=== PATIENT | female | born 1935 | race Two or more races ===

== ENCOUNTER 2020-06-03 05:45 | Inpatient (IN) | payer MEDICARE, MEDICAID ==
[~2020-06-03] VITALS: Ht 157.5 cm; Wt 62.2 kg
[2020-06-03] MEDS ORDERED: MORPHINE SULFATE 4 MG/ML CPJ (NOT FOR IM USE) IV STA (06:12)
[2020-06-03] MEDS ORDERED: ONDANSETRON HCL 4MG/2ML INJ ONE (06:31)
[2020-06-03] MEDS ORDERED: ONDANSETRON HCL 4MG/2ML INJ IV ONE (06:45)
[2020-06-03 06:49] LABS: BASOPHILS % 0.9 % (0.0-2.0); EOSINOPHILS % 3.2 % (0.0-5.0); HEMATOCRIT. 27.8 % (36.0-48.0); LYMPHOCYTES % 14.6 % (20.0-50.0); MEAN CORPUSCULAR VOLUME 95.2 fL (81.0-99.0); MEAN PLATELET VOLUME 8.8 fl (7.4-10.4); NEUTROPHILS % 72.3 % (40.0-76.0); PLATELET 360 x1000/uL (130-400); RED BLOOD CELL COUNT 2.92 mill/uL (4.2-5.4); RED CELL DISTRIBUTION WIDTH 13.3 % (11.6-14.6)
[2020-06-03 06:50] LABS: CHLORIDE 111 mEq/L (98-107)
[2020-06-03] MEDS ORDERED: MORPHINE SULFATE 4 MG/ML CPJ (NOT FOR IM USE) IV ONE (08:45)
[2020-06-03] MEDS ORDERED: CLONIDINE 0.1MG TABLET PO PRN (09:45)
[2020-06-03] MEDS ORDERED: ONDANSETRON HCL 4MG/2ML INJ IV PRN (09:45)
[2020-06-03] MEDS ORDERED: IPRATROPIUM/ALBUTEROL 0.5-3(2.5)MG/3ML NEB HHN PRN (09:45)
[2020-06-03] MEDS ORDERED: DIPHENHYDRAMINE 50MG/ML VIAL IV PRN (09:45)
[2020-06-03] MEDS ORDERED: FUROSEMIDE 100MG/10ML VIAL IV SCH (10:00)
[2020-06-03] MEDS: ACETAMINOPHEN 325MG TABLET PO PRN ×2 (10:23→18:01)
[2020-06-03 11:20] VITALS: BP 148/53
[2020-06-03 13:01] LABS: BG BASE EXCESS -7.7 mmol/L (-2.0-2.0); BG CARBOXYHEMOGLOBIN 0.3 % (0.5-1.5); BG DEOXYHEMOGLOBIN 8.4 % (0.0-5.0); BG FRACTION INSPIRED OXYGEN 36; BG HCO3 ACT 17.9 mmol/L (22.0-26.0); BG METHEMOGLOBIN 0.3 % (0.0-1.5); BG OXYGEN SATURATION 91.5 % (92.0-98.5); BG PCO2 36.6 mmHg (35.0-45.0); BG PH 7.308 (7.350-7.450); BG PO2 69.6 mmHg (75.0-100.0); BG SAMPLE SITE LEFT RADIAL; BG TOTAL HEMOGLOBIN 9.5 g/dL (12.0-18.0); BG VENT MODE NASAL CANNULA
[2020-06-03] MEDS: ISOSORBIDE DINITRATE 10MG TABLET PO SCH ×2 (14:41→17:36)
[2020-06-03] MEDS: HYDRALAZINE HCL 10MG TABLET PO SCH ×2 (14:55→20:39)
[2020-06-03] MEDS ORDERED: SITA100T11 PO (15:57)
[2020-06-03] MEDS ORDERED: GLIP5TAB12 MT (15:57)
[2020-06-03] MEDS ORDERED: METF-416 PO (15:57)
[2020-06-03] MEDS ORDERED: CLON0.1T PO (15:57)
[2020-06-03] MEDS ORDERED: DEXL30CA3 PO (15:57)
[2020-06-03] MEDS ORDERED: LOSA100T32 PO (15:57)
[2020-06-03] MEDS ORDERED: AMLO10TA80 PO (15:57)
[2020-06-03] MEDS ORDERED: DICL100G31 TP (15:57)
[2020-06-03] MEDS ORDERED: LEVO250T58 MT (15:57)
[2020-06-03] MEDS ORDERED: OMEP20TA2 PO (15:57)
[2020-06-03 16:02] VITALS: BP 142/47
[2020-06-03 17:02] LABS: CLARITY URINE CLEAR (CLEAR); COLOR URINE YELLOW (YELLOW); KETONES URINE NEGATIVE (NEGATIVE); LEUKOCYTE ESTERASE URINE TRACE (NEGATIVE); NITRITE URINE NEGATIVE (NEGATIVE); OCCULT BLOOD URINE NEGATIVE (NEGATIVE); PROTEIN URINE 1+ (NEGATIVE); SPECIFIC GRAVITY URINE 1.009 (1.005-1.030); UROBILINOGEN URINE 0.2 E.U./dL (0.2-1.0)
[2020-06-03] MEDS ORDERED: ASPIRIN 325MG EC TABLET PO ONE (17:15)
[2020-06-03] MEDS: FUROSEMIDE 100MG/10ML VIAL IV SCH (17:35)
[2020-06-03] MEDS ORDERED: HEPARIN 25,000 UNITS PREMIX 250 ML IV PRN (17:45)
[2020-06-03] MEDS ORDERED: HEPARIN 5000 UNITS/ML VIAL IV NR (17:45)
[2020-06-03] MEDS ORDERED: HEPARIN 5000 UNITS/ML VIAL IV PRN ×2 (17:45)
[2020-06-03 18:01] LABS: BG BASE EXCESS -8.8 mmol/L (-2.0-2.0); BG CARBOXYHEMOGLOBIN 0.3 % (0.5-1.5); BG FRACTION INSPIRED OXYGEN 100; BG HCO3 ACT 16.3 mmol/L (22.0-26.0); BG OXYHEMOGLOBIN 92.7 % (94.0-97.0); BG PCO2 32.2 mmHg (35.0-45.0); BG PH 7.322 (7.350-7.450); BG PO2 75.5 mmHg (75.0-100.0); BG SAMPLE SITE RIGHT RADIAL; BG TOTAL HEMOGLOBIN 9.4 g/dL (12.0-18.0); BG VENT MODE MASK - NRB
[2020-06-03 20:00] VITALS: BP 147/59
[2020-06-03] MEDS ORDERED: DEXTROSE 50% WATER 50ML SYRINGE IV PRN (20:00)
[2020-06-03] MEDS: ATORVASTATIN CALCIUM 40MG TABLET PO SCH (20:38)
[2020-06-03] MEDS: INSULIN LISPRO 100 UNITS/ML SUBCUT SCH (20:38)
[2020-06-03] MEDS: BLOOD SUGAR DIAGNOSTIC STRIP TEST SCH (20:38)
[2020-06-03 23:45] VITALS: BP 131/47
[2020-06-04] MEDS: MORPHINE SULFATE 2 MG/ML CPJ (NOT FOR IM USE) IV PRN (00:20)
[2020-06-04 04:00] VITALS: BP 146/47
[2020-06-04 04:30] VITALS: BP 146/47
[2020-06-04] MEDS: FUROSEMIDE 100MG/10ML VIAL IV SCH ×2 (05:30→17:36)
[2020-06-04] MEDS: HYDRALAZINE HCL 10MG TABLET PO SCH ×3 (05:30→21:30)
[2020-06-04] MEDS: BLOOD SUGAR DIAGNOSTIC STRIP TEST SCH ×4 (06:23→21:28)
[2020-06-04 06:24] LABS: CHLORIDE 111 mEq/L (98-107)
[2020-06-04 06:28] LABS: BASOPHILS % 0.8 % (0.0-2.0); EOSINOPHILS % 1.3 % (0.0-5.0); HEMOGLOBIN. 7.6 g/dL (12.0-16.0); LYMPHOCYTES % 14.4 % (20.0-50.0); MEAN CORPUSCULAR HEMOGLOBIN 31.1 pg (28.0-32.0); MEAN CORPUSCULAR VOLUME 94.5 fL (81.0-99.0); MEAN PLATELET VOLUME 8.7 fl (7.4-10.4); MONOCYTES % 12.4 % (2.0-8.0); NEUTROPHILS % 71.1 % (40.0-76.0); PLATELET 280 x1000/uL (130-400); RED BLOOD CELL COUNT 2.43 mill/uL (4.2-5.4); RED CELL DISTRIBUTION WIDTH 13.5 % (11.6-14.6)
[2020-06-04 06:35] LABS: PHOSPHORUS 5.2 mg/dL (2.5-4.9)
[2020-06-04 06:36] LABS: LDL CHOLESTEROL 63 mg/dL (5-100)
[2020-06-04 06:37] LABS: CREATINE KINASE 371 IU/L (26-192); HDL CHOLESTEROL 63 mg/dL (40-59)
[2020-06-04] MEDS: INSULIN LISPRO 100 UNITS/ML SUBCUT SCH ×4 (07:50→21:30)
[2020-06-04 08:00] VITALS: BP 146/57
[2020-06-04] MEDS: ISOSORBIDE DINITRATE 10MG TABLET PO SCH ×3 (08:23→17:37)
[2020-06-04] MEDS: ASPIRIN 81MG TABLET PO SCH (08:23)
[2020-06-04 09:24] LABS: BG BASE EXCESS -5.3 mmol/L (-2.0-2.0); BG CARBOXYHEMOGLOBIN 0.3 % (0.5-1.5); BG DEOXYHEMOGLOBIN 9.2 % (0.0-5.0); BG FRACTION INSPIRED OXYGEN 50; BG HCO3 ACT 19.5 mmol/L (22.0-26.0); BG METHEMOGLOBIN 0.1 % (0.0-1.5); BG OXYGEN SATURATION 90.8 % (92.0-98.5); BG OXYHEMOGLOBIN 90.4 % (94.0-97.0); BG PCO2 34.6 mmHg (35.0-45.0); BG PH 7.368 (7.350-7.450); BG PO2 65.9 mmHg (75.0-100.0); BG SAMPLE SITE RIGHT RADIAL; BG TOTAL HEMOGLOBIN 8.3 g/dL (12.0-18.0); BG TOTAL RESPIRATORY RATE 18 b/min; BG VENT MODE MASK - BIPAP
[2020-06-04 12:00] VITALS: BP_SYST 133; BP_DIAS 47; BP_DIAS 50
[2020-06-04 13:08] LABS: EOSINOPHILS % 1.4 % (0.0-5.0); HEMATOCRIT. 26.2 % (36.0-48.0); HEMOGLOBIN. 8.9 g/dL (12.0-16.0); LYMPHOCYTES % 10.2 % (20.0-50.0); MEAN CORPUSCULAR HEMOGLOBIN 31.9 pg (28.0-32.0); MEAN CORPUSCULAR VOLUME 94.1 fL (81.0-99.0); MEAN PLATELET VOLUME 8.8 fl (7.4-10.4); MONOCYTES % 9.8 % (2.0-8.0); NEUTROPHILS % 77.6 % (40.0-76.0); PLATELET 331 x1000/uL (130-400); RED BLOOD CELL COUNT 2.79 mill/uL (4.2-5.4); RED CELL DISTRIBUTION WIDTH 13.2 % (11.6-14.6)
[2020-06-04 13:25] LABS: PARTIAL THROMBOPLASTIN TIME 28.3 sec (23.4-31.0); PROTHROMBIN TIME 10.9 sec (9.6-11.0)
[2020-06-04] MEDS ORDERED: SODIUM POLYSTYRENE SULFONATE 15 G/60 ML BOT PO NR (14:00)
[2020-06-04 16:00] VITALS: BP 161/54
[2020-06-04 16:08] LABS: TOTAL IRON BINDING CAPACITY 255 ug/dL (250-450)
[2020-06-04] MEDS: METOLAZONE 2.5MG TABLET PO SCH (17:37)
[2020-06-04 20:13] VITALS: BP 113/57
[2020-06-04] MEDS: ATORVASTATIN CALCIUM 40MG TABLET PO SCH (21:30)
[2020-06-05 00:04] VITALS: BP 127/54
[2020-06-05 04:00] VITALS: BP 125/50
[2020-06-05] MEDS: METOLAZONE 2.5MG TABLET PO SCH ×2 (06:06→18:18)
[2020-06-05] MEDS: HYDRALAZINE HCL 10MG TABLET PO SCH ×3 (06:06→21:23)
[2020-06-05] MEDS: FUROSEMIDE 100MG/10ML VIAL IV SCH ×2 (06:07→18:18)
[2020-06-05] MEDS: MORPHINE SULFATE 2 MG/ML CPJ (NOT FOR IM USE) IV PRN (06:21)
[2020-06-05] MEDS: BLOOD SUGAR DIAGNOSTIC STRIP TEST SCH ×4 (06:21→21:23)
[2020-06-05 06:46] LABS: BASOPHILS % 0.9 % (0.0-2.0); EOSINOPHILS % 1.4 % (0.0-5.0); HEMATOCRIT. 25.5 % (36.0-48.0); HEMOGLOBIN. 8.6 g/dL (12.0-16.0); LYMPHOCYTES % 13.1 % (20.0-50.0); MEAN CORPUSCULAR HEMOGLOBIN 31.5 pg (28.0-32.0); MEAN CORPUSCULAR VOLUME 93.8 fL (81.0-99.0); MEAN PLATELET VOLUME 8.7 fl (7.4-10.4); MONOCYTES % 12.6 % (2.0-8.0); PLATELET 311 x1000/uL (130-400); RED BLOOD CELL COUNT 2.72 mill/uL (4.2-5.4); RED CELL DISTRIBUTION WIDTH 13.1 % (11.6-14.6)
[2020-06-05 06:50] LABS: PHOSPHORUS 5.3 mg/dL (2.5-4.9)
[2020-06-05] MEDS: INSULIN LISPRO 100 UNITS/ML SUBCUT SCH ×4 (07:46→21:23)
[2020-06-05 08:00] VITALS: BP 118/52
[2020-06-05] MEDS ORDERED: LIDOCAINE HCL/PF 1% 2ML VIAL ONE (09:00)
[2020-06-05] MEDS ORDERED: CEFTRIAXONE 1 G PREMIX 50 ML IV SCH (09:30)
[2020-06-05] MEDS: ENOXAPARIN 30MG/0.3ML SYR SUBCUT SCH (09:47)
[2020-06-05] MEDS: ISOSORBIDE DINITRATE 10MG TABLET PO SCH ×3 (09:47→18:18)
[2020-06-05] MEDS: ASPIRIN 81MG TABLET PO SCH (09:47)
[2020-06-05 10:38] LABS: BG BASE EXCESS -3.6 mmol/L (-2.0-2.0); BG CARBOXYHEMOGLOBIN 0.3 % (0.5-1.5); BG DEOXYHEMOGLOBIN 3.1 % (0.0-5.0); BG FRACTION INSPIRED OXYGEN 50; BG HCO3 ACT 20.7 mmol/L (22.0-26.0); BG METHEMOGLOBIN 0.1 % (0.0-1.5); BG OXYGEN SATURATION 96.9 % (92.0-98.5); BG OXYHEMOGLOBIN 96.5 % (94.0-97.0); BG PCO2 34.3 mmHg (35.0-45.0); BG PH 7.398 (7.350-7.450); BG PO2 103.6 mmHg (75.0-100.0); BG SAMPLE SITE RIGHT RADIAL; BG VENT MODE MASK - BIPAP
[2020-06-05] MEDS: CEFTRIAXONE 1,000 MG in DEXTROSE 5% WATER 50 ML IV SCH (11:54)
[2020-06-05 12:05] VITALS: BP 127/52
[2020-06-05] MEDS: AZITHROMYCIN 500 MG in DEXT 5% WATER 250 ML IV SCH (13:02)
[2020-06-05 16:04] VITALS: BP 116/53
[2020-06-05 20:00] VITALS: BP 116/74
[2020-06-05] MEDS: ATORVASTATIN CALCIUM 40MG TABLET PO SCH (21:23)
[2020-06-06] VITALS (7 sets, daily range): BP systolic 107–148; BP diastolic 51–71
[2020-06-06] MEDS: METOLAZONE 2.5MG TABLET PO SCH ×2 (05:33→16:24)
[2020-06-06] MEDS: MORPHINE SULFATE 2 MG/ML CPJ (NOT FOR IM USE) IV PRN (05:33)
[2020-06-06] MEDS: HYDRALAZINE HCL 10MG TABLET PO SCH ×3 (05:33→20:37)
[2020-06-06] MEDS: FUROSEMIDE 100MG/10ML VIAL IV SCH ×2 (05:33→18:56)
[2020-06-06 06:00] LABS: EOSINOPHILS % 5.4 % (0.0-5.0); HEMATOCRIT. 24.3 % (36.0-48.0); HEMOGLOBIN. 8.3 g/dL (12.0-16.0); LYMPHOCYTES % 19.9 % (20.0-50.0); MEAN CORPUSCULAR HEMOGLOBIN 31.1 pg (28.0-32.0); MEAN CORPUSCULAR VOLUME 91.1 fL (81.0-99.0); MEAN PLATELET VOLUME 8.7 fl (7.4-10.4); MONOCYTES % 11.5 % (2.0-8.0); NEUTROPHILS % 62.2 % (40.0-76.0); PLATELET 294 x1000/uL (130-400); RED BLOOD CELL COUNT 2.67 mill/uL (4.2-5.4); RED CELL DISTRIBUTION WIDTH 13.3 % (11.6-14.6)
[2020-06-06 06:23] LABS: PHOSPHORUS 4.2 mg/dL (2.5-4.9)
[2020-06-06] MEDS: BLOOD SUGAR DIAGNOSTIC STRIP TEST SCH ×4 (06:35→20:37)
[2020-06-06] MEDS: INSULIN LISPRO 100 UNITS/ML SUBCUT SCH ×4 (07:50→20:56)
[2020-06-06] MEDS: ISOSORBIDE DINITRATE 10MG TABLET PO SCH ×3 (08:09→16:28)
[2020-06-06] MEDS: ASPIRIN 81MG TABLET PO SCH (08:09)
[2020-06-06] MEDS: ENOXAPARIN 30MG/0.3ML SYR SUBCUT SCH (08:10)
[2020-06-06] MEDS: AZITHROMYCIN 500 MG in DEXT 5% WATER 250 ML IV SCH (10:12)
[2020-06-06] MEDS: CEFTRIAXONE 1,000 MG in DEXTROSE 5% WATER 50 ML IV SCH (10:12)
[2020-06-06] MEDS ORDERED: POTASSIUM CHLORIDE 20MEQ TABLET SR PO NR (11:15)
[2020-06-06] MEDS: ATORVASTATIN CALCIUM 40MG TABLET PO SCH (20:37)
[2020-06-07 03:47] VITALS: BP 154/61
[2020-06-07] MEDS: METOLAZONE 2.5MG TABLET PO SCH ×2 (05:45→17:37)
[2020-06-07] MEDS: FUROSEMIDE 100MG/10ML VIAL IV SCH ×2 (05:45→17:39)
[2020-06-07] MEDS: BLOOD SUGAR DIAGNOSTIC STRIP TEST SCH ×4 (05:46→20:36)
[2020-06-07] MEDS: HYDRALAZINE HCL 10MG TABLET PO SCH ×3 (05:46→22:22)
[2020-06-07] MEDS: INSULIN LISPRO 100 UNITS/ML SUBCUT SCH ×4 (05:50→22:25)
[2020-06-07 08:00] VITALS: BP 157/54
[2020-06-07] MEDS: ISOSORBIDE DINITRATE 10MG TABLET PO SCH ×3 (08:10→17:37)
[2020-06-07] MEDS: ASPIRIN 81MG TABLET PO SCH (08:10)
[2020-06-07] MEDS: ENOXAPARIN 30MG/0.3ML SYR SUBCUT SCH (08:11)
[2020-06-07] MEDS: CEFTRIAXONE 1,000 MG in DEXTROSE 5% WATER 50 ML IV SCH (10:08)
[2020-06-07] MEDS: AZITHROMYCIN 500 MG in DEXT 5% WATER 250 ML IV SCH (10:09)
[2020-06-07 12:00] VITALS: BP 104/40
[2020-06-07 16:00] VITALS: BP 110/53
[2020-06-07 16:16] LABS: CHLORIDE 97 mEq/L (98-107)
[2020-06-07 20:00] VITALS: BP 129/51
[2020-06-07] MEDS: MORPHINE SULFATE 2 MG/ML CPJ (NOT FOR IM USE) IV PRN (20:22)
[2020-06-07] MEDS: ATORVASTATIN CALCIUM 40MG TABLET PO SCH (20:32)
[2020-06-07 23:55] LABS: EOSINOPHILS % 3.2 % (0.0-5.0); HEMATOCRIT. 27.2 % (36.0-48.0); HEMOGLOBIN. 9.1 g/dL (12.0-16.0); LYMPHOCYTES % 17.6 % (20.0-50.0); MEAN CORPUSCULAR HEMOGLOBIN 30.2 pg (28.0-32.0); MEAN CORPUSCULAR VOLUME 90.7 fL (81.0-99.0); MEAN PLATELET VOLUME 8.3 fl (7.4-10.4); MONOCYTES % 9.8 % (2.0-8.0); NEUTROPHILS % 68.4 % (40.0-76.0); PLATELET 391 x1000/uL (130-400); RED CELL DISTRIBUTION WIDTH 13.2 % (11.6-14.6)
[2020-06-08] VITALS: BP 156/58
[2020-06-08 04:00] VITALS: BP 174/55
[2020-06-08 06:06] LABS: BASOPHILS % 0.9 % (0.0-2.0); EOSINOPHILS % 2.5 % (0.0-5.0); HEMATOCRIT. 29.2 % (36.0-48.0); HEMOGLOBIN. 9.9 g/dL (12.0-16.0); MEAN CORPUSCULAR VOLUME 91.7 fL (81.0-99.0); MEAN PLATELET VOLUME 8.7 fl (7.4-10.4); MONOCYTES % 7.8 % (2.0-8.0); NEUTROPHILS % 76.8 % (40.0-76.0); PLATELET 405 x1000/uL (130-400); RED BLOOD CELL COUNT 3.19 mill/uL (4.2-5.4)
[2020-06-08] MEDS: HYDRALAZINE HCL 10MG TABLET PO SCH ×3 (06:30→22:00)
[2020-06-08] MEDS: METOLAZONE 2.5MG TABLET PO SCH (06:31)
[2020-06-08] MEDS: BLOOD SUGAR DIAGNOSTIC STRIP TEST SCH ×4 (06:31→21:29)
[2020-06-08] MEDS: FUROSEMIDE 100MG/10ML VIAL IV SCH (06:31)
[2020-06-08 07:40] LABS: CHLORIDE 95 mEq/L (98-107)
[2020-06-08 08:15] VITALS: BP 144/56
[2020-06-08] MEDS: INSULIN LISPRO 100 UNITS/ML SUBCUT SCH ×4 (08:18→21:00)
[2020-06-08] MEDS: ASPIRIN 81MG TABLET PO SCH (08:20)
[2020-06-08] MEDS: ENOXAPARIN 30MG/0.3ML SYR SUBCUT SCH (08:20)
[2020-06-08] MEDS: ISOSORBIDE DINITRATE 10MG TABLET PO SCH ×3 (08:21→18:15)
[2020-06-08] MEDS: CEFTRIAXONE 1,000 MG in DEXTROSE 5% WATER 50 ML IV SCH (09:39)
[2020-06-08] MEDS ORDERED: POTASSIUM CHLORIDE INJ 40 MEQ in DEXT 5% WATER 250 ML IV NR (10:30)
[2020-06-08 12:39] VITALS: BP 134/60
[2020-06-08] MEDS: AZITHROMYCIN 500 MG in DEXT 5% WATER 250 ML IV SCH (14:32)
[2020-06-08] MEDS: IRON SUCROSE COMPLEX 100 MG/5 ML ML IV SCH (14:32)
[2020-06-08 16:04] VITALS: BP 127/80
[2020-06-08] MEDS ORDERED: FUROSEMIDE 40MG/4ML VIAL IV SCH (18:00)
[2020-06-08 20:00] VITALS: BP 110/45
[2020-06-08] MEDS: ATORVASTATIN CALCIUM 40MG TABLET PO SCH (21:28)
[2020-06-08] MEDS: METOPROLOL TARTRATE 25MG TABLET PO SCH (21:29)
[2020-06-09] VITALS: BP 118/53
[2020-06-09 04:00] VITALS: BP 166/41
[2020-06-09] MEDS: HYDRALAZINE HCL 10MG TABLET PO SCH (06:05)
[2020-06-09] MEDS: BLOOD SUGAR DIAGNOSTIC STRIP TEST SCH ×2 (06:06→12:24)
[2020-06-09 07:12] LABS: BASOPHILS % 1.3 % (0.0-2.0); EOSINOPHILS % 4.5 % (0.0-5.0); HEMATOCRIT. 29.8 % (36.0-48.0); LYMPHOCYTES % 19.1 % (20.0-50.0); MEAN CORPUSCULAR HEMOGLOBIN 30.3 pg (28.0-32.0); MEAN CORPUSCULAR VOLUME 90.3 fL (81.0-99.0); MEAN PLATELET VOLUME 8.8 fl (7.4-10.4); MONOCYTES % 10.6 % (2.0-8.0); NEUTROPHILS % 64.5 % (40.0-76.0); PLATELET 436 x1000/uL (130-400); RED CELL DISTRIBUTION WIDTH 13.4 % (11.6-14.6)
[2020-06-09 07:27] LABS: PHOSPHORUS 3.8 mg/dL (2.5-4.9)
[2020-06-09 08:10] VITALS: BP 132/46
[2020-06-09] MEDS ORDERED: FUROSEMIDE 40MG TABLET PO SCH (09:00)
[2020-06-09] MEDS: ASPIRIN 81MG TABLET PO SCH (09:16)
[2020-06-09] MEDS: IRON SUCROSE COMPLEX 100 MG/5 ML ML IV SCH (09:16)
[2020-06-09] MEDS: METOPROLOL TARTRATE 25MG TABLET PO SCH (09:17)
[2020-06-09] MEDS: ISOSORBIDE DINITRATE 10MG TABLET PO SCH (09:17)
[2020-06-09] MEDS: ENOXAPARIN 30MG/0.3ML SYR SUBCUT SCH (09:17)
[2020-06-09] MEDS: INSULIN LISPRO 100 UNITS/ML SUBCUT SCH ×2 (09:19→12:25)
[2020-06-09] MEDS ORDERED: ISOSORBIDE MONONITRATE 30MG TABLET SR 24HR PO SCH (12:00)
[2020-06-09 12:04] VITALS: BP 122/50
[2020-06-09] MEDS ORDERED: LIP40 PO (13:52)
[2020-06-09] MEDS ORDERED: ISOS30TA91 PO (13:52)
[2020-06-09] MEDS ORDERED: HYDR-4133 PO (13:52)
[2020-06-09] MEDS ORDERED: FURO40TA5 PO (13:52)
[2020-06-09] MEDS ORDERED: FERR325T6 MT (13:52)
[2020-06-09] MEDS ORDERED: ASPI-1160 PO (13:52)
[2020-06-09 15:40] VITALS: BP 122/50
[2020-06-09] MEDS ORDERED: METOPROLOL TARTRATE 25MG TABLET PO SCH (21:00)
== END 2020-06-09 17:00 | disposition home health service (06) | DRG 720 ==
LOC: EDBD 05:45 → ER 05:45 → 6WST 08:37 → EDBEDREQ 08:40 → EDBEDREQTM 08:40 → ENRESERV 08:59
PROVIDERS: ADMIT Internal Medicine; ATTEND Internal Medicine
PROC: 5A09457 Assistance with Respiratory Ventilation, 24-96 Consecutive Hours, Continuous Positive Airway Pressure (ICD-10-PCS; principal; 2020-06-03)
DX: A41.9 Sepsis, unspecified organism (principal); I21.4 Non-ST elevation (NSTEMI) myocardial infarction; I11.0 Hypertensive heart disease with heart failure; J96.01 Acute respiratory failure with hypoxia; I50.43 Acute on chronic combined systolic (congestive) and diastolic (congestive) heart failure; E44.0 Moderate protein-calorie malnutrition; I27.29 Other secondary pulmonary hypertension; I16.0 Hypertensive urgency; Z20.822 Contact with and (suspected) exposure to COVID-19; N17.9 Acute kidney failure, unspecified; D63.8 Anemia in other chronic diseases classified elsewhere; E78.5 Hyperlipidemia, unspecified; J18.9 Pneumonia, unspecified organism; E87.5 Hyperkalemia; E78.00 Pure hypercholesterolemia, unspecified; E05.90 Thyrotoxicosis, unspecified without thyrotoxic crisis or storm; I34.0 Nonrheumatic mitral (valve) insufficiency; I36.1 Nonrheumatic tricuspid (valve) insufficiency; D50.9 Iron deficiency anemia, unspecified; E87.6 Hypokalemia; J44.0 Chronic obstructive pulmonary disease with (acute) lower respiratory infection; I13.0 Hypertensive heart and chronic kidney disease with heart failure and stage 1 through stage 4 chronic kidney disease, or unspecified chronic kidney disease; N18.4 Chronic kidney disease, stage 4 (severe); E11.22 Type 2 diabetes mellitus with diabetic chronic kidney disease; Z79.84 Long term (current) use of oral hypoglycemic drugs; Z79.899 Other long term (current) drug therapy; Z79.2 Long term (current) use of antibiotics; Z68.25 Body mass index [BMI] 25.0-25.9, adult; Z82.49 Family history of ischemic heart disease and other diseases of the circulatory system; Z83.3 Family history of diabetes mellitus; M79.605 Pain in left leg; M79.604 Pain in right leg
CPT/HCPCS: 36415; 36600; 71045; 71250; 76770; 78582; 80048; 80053; 80061; 81003; 82270; 82375; 82550; 82728; 82805; 82962; 83540; 83550; 83735; 83880; 84100; 84443; 84484; 85025; 85379; 87426; 93005; 93306; 93970; 94660; 97162; 97166; 99285; A9558; C1893; J0456; J0696; J1644; J1650; J1815; J1940; J2270; J2405; J3480; J3490; J7060; U0003; A4315

== ENCOUNTER 2020-08-27 11:39 | Inpatient (IN) | payer MEDICARE, MEDICAID ==
[~2020-08-27] VITALS: Ht 149.9 cm; Wt 59.4 kg
[~2020-08-27 11:39] MED LIST: ASPI-1160 PO; DEXL30CA3 PO; DICL100G31 TP; FERR325T6 MT; FURO40TA5 PO; GABA-533 MT; GLIP5TAB12 MT; HYDR-4133 PO; ISOS30TA91 PO; LIP40 PO; METF-416 PO; SITA100T11 PO
[2020-08-27] MEDS ORDERED: MORPHINE SULFATE 2 MG/ML CPJ (NOT FOR IM USE) IV ONE (12:30)
[2020-08-27] MEDS ORDERED: NITROGLYCERIN 0.4MG TABLET SL SL PRN (12:30)
[2020-08-27 13:04] LABS: BASOPHILS % 1.2 % (0.0-2.0); EOSINOPHILS % 3.3 % (0.0-5.0); HEMATOCRIT. 28.3 % (36.0-48.0); HEMOGLOBIN. 9.2 g/dL (12.0-16.0); LYMPHOCYTES % 18.7 % (20.0-50.0); MEAN CORPUSCULAR HEMOGLOBIN 30.2 pg (28.0-32.0); MEAN CORPUSCULAR VOLUME 93.2 fL (81.0-99.0); MEAN PLATELET VOLUME 8.8 fl (7.4-10.4); MONOCYTES % 8.6 % (2.0-8.0); NEUTROPHILS % 68.2 % (40.0-76.0); PLATELET 233 x1000/uL (130-400); RED BLOOD CELL COUNT 3.04 mill/uL (4.2-5.4); RED CELL DISTRIBUTION WIDTH 15.4 % (11.6-14.6)
[2020-08-27 13:11] LABS: CHLORIDE 111 mEq/L (98-107)
[2020-08-27] MEDS ORDERED: FUROSEMIDE 40MG/4ML VIAL IV SCH (14:00)
[2020-08-27] MEDS ORDERED: ASPIRIN 81MG TABLET PO SCH (14:00)
[2020-08-27] MEDS ORDERED: NITROGLYCERIN OINT 1GM/INCH UDPKT TD SCH (14:00)
[2020-08-27] MEDS ORDERED: HYDRALAZINE 20MG/ML VIAL IV NR (16:45)
[2020-08-27 23:15] VITALS: BP 155/52
[2020-08-28] VITALS (7 sets, daily range): BP systolic 121–190; BP diastolic 42–53
[2020-08-28] MEDS ORDERED: MORPHINE SULFATE 2 MG/ML CPJ (NOT FOR IM USE) IV PRN (05:15)
[2020-08-28] MEDS ORDERED: METFORMIN HCL 500MG TABLET PO SCH (07:15)
[2020-08-28] MEDS ORDERED: METOPROLOL TARTRATE 50MG TABLET PO SCH (09:00)
[2020-08-28] MEDS ORDERED: METOCLOPRAMIDE 10MG/10 ML UDC PO SCH (09:00)
[2020-08-28 09:08] LABS: BASOPHILS % 1.3 % (0.0-2.0); EOSINOPHILS % 3.9 % (0.0-5.0); HEMATOCRIT. 28.8 % (36.0-48.0); HEMOGLOBIN. 9.5 g/dL (12.0-16.0); MEAN CORPUSCULAR HEMOGLOBIN 30.3 pg (28.0-32.0); MEAN CORPUSCULAR VOLUME 91.7 fL (81.0-99.0); MEAN PLATELET VOLUME 8.9 fl (7.4-10.4); MONOCYTES % 10.1 % (2.0-8.0); NEUTROPHILS % 65.7 % (40.0-76.0); PLATELET 253 x1000/uL (130-400); RED BLOOD CELL COUNT 3.14 mill/uL (4.2-5.4); RED CELL DISTRIBUTION WIDTH 15.5 % (11.6-14.6)
[2020-08-28] MEDS: NITROGLYCERIN OINT 1GM/INCH UDPKT TD SCH ×3 (09:18→22:03)
[2020-08-28] MEDS: ASPIRIN 81MG TABLET PO SCH (09:18)
[2020-08-28 09:24] LABS: LDL CHOLESTEROL 53 mg/dL (5-100)
[2020-08-28 09:26] LABS: HDL CHOLESTEROL 64 mg/dL (40-59)
[2020-08-28] MEDS ORDERED: HYDRALAZINE 20MG/ML VIAL IV PRN (12:15)
[2020-08-28] MEDS: ISOSORBIDE DINITRATE 20MG TABLET PO SCH ×2 (12:18→17:11)
[2020-08-28] MEDS: HYDRALAZINE HCL 50MG TABLET PO SCH ×3 (12:19→20:44)
[2020-08-28 16:21] LABS: CLARITY URINE CLOUDY (CLEAR); COLOR URINE YELLOW (YELLOW); KETONES URINE NEGATIVE (NEGATIVE); LEUKOCYTE ESTERASE URINE NEGATIVE (NEGATIVE); NITRITE URINE NEGATIVE (NEGATIVE); OCCULT BLOOD URINE NEGATIVE (NEGATIVE); PH URINE 5.5 (4.5-8.0); PROTEIN URINE 2+ (NEGATIVE); SPECIFIC GRAVITY URINE 1.014 (1.005-1.030); UROBILINOGEN URINE 0.2 E.U./dL (0.2-1.0)
[2020-08-28 16:53] LABS: TOTAL IRON BINDING CAPACITY 228 ug/dL (250-450)
[2020-08-28] MEDS: ATORVASTATIN CALCIUM 40MG TABLET PO SCH (20:44)
[2020-08-29] VITALS (8 sets, daily range): BP systolic 136–160; BP diastolic 37–51
[2020-08-29] MEDS: NITROGLYCERIN OINT 1GM/INCH UDPKT TD SCH (05:19)
[2020-08-29] MEDS: HYDRALAZINE HCL 50MG TABLET PO SCH ×3 (05:20→20:51)
[2020-08-29 07:21] LABS: BASOPHILS % 1.3 % (0.0-2.0); EOSINOPHILS % 4.6 % (0.0-5.0); HEMOGLOBIN. 9.3 g/dL (12.0-16.0); MEAN CORPUSCULAR HEMOGLOBIN 30.3 pg (28.0-32.0); MEAN CORPUSCULAR VOLUME 91.1 fL (81.0-99.0); MEAN PLATELET VOLUME 8.9 fl (7.4-10.4); MONOCYTES % 9.8 % (2.0-8.0); NEUTROPHILS % 63.3 % (40.0-76.0); PLATELET 250 x1000/uL (130-400); RED BLOOD CELL COUNT 3.08 mill/uL (4.2-5.4); RED CELL DISTRIBUTION WIDTH 15.2 % (11.6-14.6)
[2020-08-29] MEDS: ASPIRIN 81MG TABLET PO SCH (09:19)
[2020-08-29] MEDS: ISOSORBIDE DINITRATE 20MG TABLET PO SCH ×3 (09:19→17:19)
[2020-08-29] MEDS: ATORVASTATIN CALCIUM 40MG TABLET PO SCH (20:51)
[2020-08-29] MEDS ORDERED: AMLODIPINE 2.5MG TABLET PO SCH (21:00)
[2020-08-30 01:26] VITALS: BP 124/34
[2020-08-30 05:07] VITALS: BP 152/44
[2020-08-30 06:17] LABS: BASOPHILS % 1.3 % (0.0-2.0); EOSINOPHILS % 5.2 % (0.0-5.0); HEMOGLOBIN. 9.1 g/dL (12.0-16.0); LYMPHOCYTES % 18.5 % (20.0-50.0); MEAN CORPUSCULAR HEMOGLOBIN 30.7 pg (28.0-32.0); MEAN CORPUSCULAR VOLUME 90.5 fL (81.0-99.0); MONOCYTES % 10.7 % (2.0-8.0); NEUTROPHILS % 64.3 % (40.0-76.0); PLATELET 239 x1000/uL (130-400); RED BLOOD CELL COUNT 2.98 mill/uL (4.2-5.4); RED CELL DISTRIBUTION WIDTH 15.1 % (11.6-14.6)
[2020-08-30] MEDS: HYDRALAZINE HCL 50MG TABLET PO SCH ×2 (06:22→13:06)
[2020-08-30 08:00] VITALS: BP 125/34
[2020-08-30] MEDS: ASPIRIN 81MG TABLET PO SCH (10:24)
[2020-08-30] MEDS: ISOSORBIDE DINITRATE 20MG TABLET PO SCH ×2 (10:24→12:34)
[2020-08-30] MEDS ORDERED: HYDR-4135 PO (11:48)
[2020-08-30 12:00] VITALS: BP 155/59
[2020-08-30 12:42] VITALS: BP 155/59
== END 2020-08-30 13:15 | disposition home or self-care (01) | DRG 199 ==
LOC: ER 11:39 → 5WST 18:25 → EDBEDREQTM 18:27 → EDBEDREQ 18:27 → ENRESERV 21:49
PROVIDERS: ADMIT Internal Medicine; ATTEND Internal Medicine
DX: I16.1 Hypertensive emergency (principal); N18.4 Chronic kidney disease, stage 4 (severe); E11.22 Type 2 diabetes mellitus with diabetic chronic kidney disease; I25.110 Atherosclerotic heart disease of native coronary artery with unstable angina pectoris; N17.9 Acute kidney failure, unspecified; I50.42 Chronic combined systolic (congestive) and diastolic (congestive) heart failure; I13.0 Hypertensive heart and chronic kidney disease with heart failure and stage 1 through stage 4 chronic kidney disease, or unspecified chronic kidney disease; G89.29 Other chronic pain; K21.9 Gastro-esophageal reflux disease without esophagitis; M54.5 Low back pain; E78.00 Pure hypercholesterolemia, unspecified; D64.9 Anemia, unspecified; R00.1 Bradycardia, unspecified; E78.5 Hyperlipidemia, unspecified; I34.0 Nonrheumatic mitral (valve) insufficiency; M17.0 Bilateral primary osteoarthritis of knee; Z20.822 Contact with and (suspected) exposure to COVID-19; Z79.82 Long term (current) use of aspirin; Z79.899 Other long term (current) drug therapy; I25.2 Old myocardial infarction; Z87.01 Personal history of pneumonia (recurrent); Z87.440 Personal history of urinary (tract) infections; Z83.3 Family history of diabetes mellitus; Z82.49 Family history of ischemic heart disease and other diseases of the circulatory system
CPT/HCPCS: 36415; 71045; 80048; 80053; 80061; 81003; 82962; 83036; 83540; 83550; 83735; 83880; 84100; 84484; 85025; 87426; 93005; 93306; 93970; 99291; J0360; J1940; J2270